=== PATIENT | female | born 2000 | race Two or more races ===

== ENCOUNTER 2023-01-10 13:14 | Outpatient (CLI) | payer OTHER | END 2023-01-10 14:42 | disposition home or self-care (01) | LOC: PRENATAL 13:14 | PROVIDERS: ATTEND Obstetrics & Gynecology Maternal & Fetal Medicine | DX: O36.80X0 Pregnancy with inconclusive fetal viability, not applicable or unspecified (principal); Z3A.14 14 weeks gestation of pregnancy ==

== ENCOUNTER 2023-02-22 13:26 | Outpatient (CLI) | payer OTHER | END 2023-02-22 17:10 | disposition home or self-care (01) | LOC: PRENATAL 13:26 | PROVIDERS: ATTEND Obstetrics & Gynecology Maternal & Fetal Medicine | DX: O35.3XX0 Maternal care for (suspected) damage to fetus from viral disease in mother, not applicable or unspecified (principal); O30.90 Multiple gestation, unspecified, unspecified trimester; O44.00 Complete placenta previa NOS or without hemorrhage, unspecified trimester; O60.00 Preterm labor without delivery, unspecified trimester; Z3A.20 20 weeks gestation of pregnancy ==

== ENCOUNTER 2023-03-22 10:29 | Outpatient (CLI) | payer OTHER | END 2023-03-22 12:15 | disposition home or self-care (01) | LOC: PRENATAL 10:29 | PROVIDERS: ATTEND Obstetrics & Gynecology Maternal & Fetal Medicine | DX: O26.849 Uterine size-date discrepancy, unspecified trimester (principal); O30.90 Multiple gestation, unspecified, unspecified trimester; O60.00 Preterm labor without delivery, unspecified trimester; Z3A.24 24 weeks gestation of pregnancy ==

== ENCOUNTER 2023-04-19 08:11 | Outpatient (CLI) | payer OTHER | END 2023-04-19 09:11 | disposition home or self-care (01) | LOC: PRENATAL 08:11 | PROVIDERS: ATTEND Obstetrics & Gynecology Maternal & Fetal Medicine | DX: O26.849 Uterine size-date discrepancy, unspecified trimester (principal); O30.90 Multiple gestation, unspecified, unspecified trimester; O60.00 Preterm labor without delivery, unspecified trimester; O36.8199 Decreased fetal movements, unspecified trimester, other fetus; Z3A.28 28 weeks gestation of pregnancy ==

== ENCOUNTER 2023-06-04 20:56 | Inpatient (IN) | payer OTHER ==
[~2023-06-04] VITALS: Ht 162.6 cm; Wt 1.8 kg
[2023-06-04 22:26] LABS: HEMOGLOBIN 11.8 g/dL (12.0-15.00); MEAN CELL VOLUME 88.2 fL (80.00-100.00); MEAN CORPUSCULAR HGB CONC 32.9 g/dl (32.0-36.0); PLATELET COUNT 229 K/uL (150-450); RED BLOOD COUNT 4.09 M/uL (4.00-6.00); RED CELL DISTRIBUTION WIDTH 14.1 % (11.5-14.5); URINE APPEARANCE Clear; URINE BILIRRUBIN Negative (NEGATIVE); URINE BLOOD Negative; URINE COLOR Yellow; URINE GLUCOSE Negative (NEGATIVE); URINE LEUKOCYTE Large; URINE NITRATE Negative; URINE PROTEIN Trace (NEGATIVE); URINE UROBILINOGEN 0.2 E.U./dl
[2023-06-04 22:28] LABS: URINE BACTERIA 3018.7 uL (0.0-1933); URINE RBC 2.4 uL (0.0-20.8); URINE WBC 14.8 uL (0.0-23.2)
[2023-06-04] MEDS ORDERED: PRENATAL TABLE1 EAC1 PO (22:29)
[2023-06-04] MEDS ORDERED: FOLIC ACID20 MG PO (22:29)
[2023-06-04 22:43] LABS: URINE MUCUS SCANT
[2023-06-04 22:44] LABS: ALBUMIN 2.6 gm/dL (3.4-5.0); BILIRUBIN TOTAL 0.59 mg/dL (0.3-1.2); CALCIUM 9.3 mg/dL (8.5-10.1); CREATININE SERUM 0.53 mg/dL (0.55-1.02); GFR 144.25; GLOBULINA 4.4 G/DL (2.4-3.5); POTASSIUM 3.77 mEq/L (3.5-5.1)
[2023-06-07 15:22] LABS: ABG PH 7.273 (7.35-7.45); ABG pCO2 57.7 mmHg (35-45); BASE EXCESS -1.9 mmol/l; BICARBONATE 26.1 mmol/l (23-25); SaO2 21.9 %; Tco2 27.9 mmol/l
[2023-06-07 15:24] LABS: ABG PH 7.341 (7.35-7.45); ABG pCO2 45.4 mmHg (35-45); SaO2 36.8 %; Tco2 25.4 mmol/l
[2023-06-07 15:31] LABS: ABG PO2 18.9 mmHg (80-100)
[2023-06-07 15:32] LABS: ABG PO2 23.7 mmHg (80-100); o2 21 %
[2023-06-07 15:33] LABS: o2 21 %
[2023-06-07 21:38] LABS: HEMATOCRIT 33.2 % (36.0-45.00); HEMOGLOBIN 10.7 g/dL (12.0-15.00); MEAN CELL VOLUME 87.4 fL (80.00-100.00); MEAN CORPUSCULAR HEMOGLOBIN 28.3 pg (27.00-32.0); MEAN CORPUSCULAR HGB CONC 32.4 g/dl (32.0-36.0); PLATELET COUNT 208 K/uL (150-450); RED BLOOD COUNT 3.79 M/uL (4.00-6.00)
== END 2023-06-10 14:05 | disposition home or self-care (01) | DRG 786 ==
LOC: OBS/DEL 20:56 → O/R 06-05 02:40 → LDR 06-05 02:40 → OBS/DEL 06-05 02:40 → O/R 06-07 12:35 → OB/GYN 06-07 15:03 → O/R 06-10 12:28 → OB/GYN 06-10 12:30
PROVIDERS: ADMIT Obstetrics & Gynecology; ATTEND Obstetrics & Gynecology
PROC: 4A1HXCZ Monitoring of Products of Conception, Cardiac Rate, External Approach (ICD-10-PCS; 2023-06-05)
PROC: BY4GZZZ Ultrasonography of Third Trimester, Multiple Gestation (ICD-10-PCS; 2023-06-05)
PROC: 10D00Z1 Extraction of Products of Conception, Low, Open Approach (ICD-10-PCS; principal; 2023-06-07 08:45)
DX: O32.1XX1 Maternal care for breech presentation, fetus 1 (principal); O60.14X2 Preterm labor third trimester with preterm delivery third trimester, fetus 2; O32.2XX1 Maternal care for transverse and oblique lie, fetus 1; O36.8132 Decreased fetal movements, third trimester, fetus 2; O26.843 Uterine size-date discrepancy, third trimester; O30.033 Twin pregnancy, monochorionic/diamniotic, third trimester; Z3A.34 34 weeks gestation of pregnancy; Z37.2 Twins, both liveborn; Z20.822 Contact with and (suspected) exposure to COVID-19